=== PATIENT | male | born 1980 | race Two or more races ===

== ENCOUNTER → 2024-10-06 | Outpatient (CLI) | payer BC, SELFPAY ==
--- NOTE | 2024-10-06 15:41 | EKG_ITS ---
[facility] Test Date: 2024-10-06 Pat Name: KAROL FOSTER Department: Room: - Gender: Male [employer]: RT STUDENT : 1980 Requested By: Gerard Benjamin (PCP) Order Number: [id number] Reading MD: Gerard Benjamin (PCP) Measurements Intervals [place] Rate: 61 P: 52 [place]: 162 QRS: 52 QRSD: 100 T: 35 QT: 397 QTc: 401 Interpretive Statements SINUS RHYTHM No previous ECG available for comparison /[id number]/S0/[id number].pdf
--- NOTE | 2024-10-06 16:21 | XR_ITS ---
Examination: PA lateral chest 2 views TECHNIQUE: Upright PA and lateral chest 2 views Date and time: October 06, 2024 1644 hours INDICATIONS: Chest pain shortness of breath beginning several months ago. FINDINGS: Normal heart size. Lungs are clear. The osseous structures are intact Impression : No active disease
--- NOTE | 2024-10-06 16:21 | XR_ITS ---
Examination: Foot bilateral, 6 views Technique: AP, oblique, lateral views each foot does exam is Date and time of exam: October 06, 2024 1652 hours INDICATIONS: Bilateral foot pain beginning several months ago with swelling FINDINGS: The films are underpenetrated No fracture or dislocation involving either foot No cortical bony erosions No opaque foreign bodies Small plantar calcaneal spurs bilaterally IMPRESSION: No erosive or other significant arthritic change involving either foot No areas of cortical bone destruction
== END | disposition home or self-care (01) ==
PROVIDERS: PCP Family Medicine; Referring Provider Family Medicine; Visit Provider Family Medicine
DX: M77.32 Calcaneal spur, left foot (principal); M77.31 Calcaneal spur, right foot; R07.9 Chest pain, unspecified; R00.2 Palpitations; J40 Bronchitis, not specified as acute or chronic
CPT/HCPCS: 71046; 73630; 93005

== ENCOUNTER → 2024-12-26 | Outpatient (CLI) | payer BC, SELFPAY ==
[2025-01-01 07:03] LABS: Fecal Globin Result NOT DETECTED (NOT DETECTED)
== END | disposition home or self-care (01) ==
LOC: SLDO 13:57
PROVIDERS: Referring Provider Family Medicine; Visit Provider Family Medicine
DX: R19.5 Other fecal abnormalities (principal)
CPT/HCPCS: 82274; G0328

== ENCOUNTER → 2025-04-06 | Outpatient (CLI) | payer BC, SELFPAY ==
[2025-04-10 07:46] LABS: Helicobacter pylori Ag, Stool* DETECTED (NOT DETECTED)
== END | disposition home or self-care (01) ==
PROVIDERS: Referring Provider Family Medicine; Visit Provider Family Medicine
DX: R10.13 Epigastric pain (principal)
CPT/HCPCS: 87338